=== PATIENT | female | born 1975 | race Caucasian/White ===

== ENCOUNTER 2021-04-02 09:42 | Outpatient (CLI) | payer SELFPAY ==
--- NOTE | 2021-04-02 09:54 | XRR_ITS ---
PROCEDURE INFORMATION: Exam: XR Chest Exam date and time: 04/02/2021 9:54 AM Age: 46 years old Clinical indication: Covid screening TECHNIQUE: Imaging protocol: XR of the chest. Views: 1 view. COMPARISON: No relevant prior studies available. FINDINGS: Lungs: No focal peripheral lung consolidation, air bronchogram formation, or silhouette sign. Pleural spaces: No pleural effusion or pneumothorax. Heart/Mediastinum: The cardiac silhouette is not enlarged. The mediastinal contours are normal. Bones/joints: No acute osseous abnormality. XR/XR chest 1V portable [id number] IMPRESSION: No sign of pneumonia. CT CHEST would be more sensitive in detecting early/mild changes of COVID-19 pneumonia. Radiation Dose CTDIVOL = (mGy): DLP = (mGy-cm)
== END 2021-04-02 09:43 | disposition home or self-care (01) ==
LOC: RAD 09:51
PROVIDERS: Visit Provider Family Medicine Adult Medicine
DX: Z20.822 Contact with and (suspected) exposure to COVID-19 (principal); J44.1 Chronic obstructive pulmonary disease with (acute) exacerbation; U07.1 COVID-19
CPT/HCPCS: 71045; 87635

== ENCOUNTER 2021-04-23 15:23 | Emergency (ER) | payer SELFPAY ==
[2021-04-23 15:47] VITALS: BP 202/94; PULSE 104; RESP 16; TEMP 36.6; O2SAT 99; BMI 27.3
--- NOTE | 2021-04-23 15:51 | ECG_ITS ---
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 Measurements Intervals [place] Rate: 100 P: 79 DC: 155 QRS: 54 QRSD: 86 T: 54 QT: 321 QTc: 414 Interpretive Statements SINUS TACHYCARDIA POSSIBLE LEFT ATRIAL ENLARGEMENT [-0.1mV P-WAVE IN V1/V2] No previous ECG available for comparison Electronically Signed On 04-23-2021 17:51:21 PATIENT CASE COORDINATOR by Irina Botello M.D. [id number]
--- NOTE | 2021-04-23 15:53 | XR_ITS ---
WS: [id number] Exam: XR chest 1V portable [id number] Date/Time of Exam: 04/23/2021 3:56 PM Reason For Exam: chest pain Comparison 04/02/2021. Findings: The lungs are clear and fully expanded. Costophrenic angles are sharp. No infiltrates. Bronchovascula r relief appears normal. Cardiac silhouette is unremarkable. Bony elements are intact. XR/XR chest 1V portable [id number] IMPRESSION: Unremarkable chest radiograph.
[2021-04-23 16:03] LABS: Basophils % 0.4 %; Eosinophils # 0.1 10^3/uL (0.0-0.8); Eosinophils % 0.6 %; Hematocrit 43.6 % (37.0-47.0); Hemoglobin 15.3 g/dL (11.5-15.3); Lymphocytes # 1.8 10^3/uL (0.8-4.8); Mean Corpuscular HGB Conc 35.1 g/dL (30.0-36.0); Mean Corpuscular Hemoglobin 33.1 pg (28.0-34.0); Mean Corpuscular Volume 94.4 fl (81-99); Mean Platelet Volume 8.4 fL (7.4-10.4); Monocytes # 0.6 10^3/uL (0.2-0.9); Monocytes % 7.2 %; Neutrophils # 5.96 10^3/uL (1.8-7.7); Neutrophils % 70.6 %; Nucleated Red Blood Cells % 0 %; Platelet Count 243 10^3/cmm (130-400); Red Blood Count 4.62 10^6/uL (4.1-5.3); Red Cell Distribution Width 12.2 % (12.1-15.1); White Blood Count 8.4 10^3/uL (4.0-10.0)
[2021-04-23 16:26] LABS: Troponin(5th) Baseline 6 ng/L (0-10)
[2021-04-23 16:36] LABS: Alanine Aminotransferase 20 U/L (0-33); Albumin Level 4.7 g/dL (3.5-5.2); Alkaline Phosphatase 81 IU/L (35-105); Anion Gap 21.3 (5-19); Aspartate Amino Transferase 13 U/L (0-32); Blood Urea Nitrogen 6 mg/dL (6-20); Calcium 9.1 mg/dL (8.5-10.5); Carbon Dioxide 22 mmol/L (22-29); Chloride 102 mmol/L (98-107); Globulin 2.4 g/dL (1.3-4.6); Glomerular Filtration Rate 131.7 mL/min (90-130); Glucose 77 mg/dL (65-115); Osmolality Calculated 288 mOsm/kg (285-295); Potassium 4.3 mmol/L (3.5-5.1); Sodium 141 mmol/L (136-145); Total Bilirubin 0.4 mg/dL (0.15-1.2); Total Protein 7.1 g/dL (6.6-8.7)
[2021-04-23 17:49] LABS: Troponin 5 2HR Delta 0 ABS# (0-10)
--- NOTE | 2021-04-23 17:51 | ECG_ITS ---
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 Measurements Intervals [place] Rate: 99 P: 63 CA: 167 QRS: 64 QRSD: 82 T: 47 QT: 330 QTc: 424 Interpretive Statements SINUS RHYTHM Compared to ECG 04/23/2021 15:44:55 Sinus tachycardia no longer present Electronically Signed On 04-23-2021 17:55:53 HEAVY DUTY TRUCK MECHANIC by Irina Botello M.D. [id number] f
--- NOTE | 2021-04-23 18:50 | W.ED.ARRPALP ---
HPI - Arrhythmia/Palpitations General: Chief Complaint: Arrhythmia/Palpitations Stated Complaint: HIGH HEART RATE/HIGH BP Time Seen by Provider: 04/23/21 18:40 Source: patient Mode of arrival: ambulatory Limitations: no limitations History of Present Illness: HPI narrative: 46-year-old female has a history of COPD is actually diagnosed with Covid at the end of March on a course of steroids states that when she finished the steroids on the and she is out of quarantine she has been having some palpitations along with slight headaches. States that her blood pressures been running quite high as well her blood pressure here is 171/125 she denies any chest pain to me denies any shortness of breath states that her palpitations are typically worse with ambulation. Denies any vomiting or diarrhea. Associated symptoms: Deny nausea or vomiting Review of Systems Const: Denies: fever(s), chills, body aches or change in appetite Eyes: Denies: blurry vision or eye discomfort ENMT: Denies: throat pain or dental pain Card: Reports: palpitations Resp: Denies: dyspnea GI: Denies: abdominal pain, nausea, vomiting or diarrhea : Denies: dysuria Musc: Denies: neck pain or back pain Skin/Breast: Denies: rash Neuro: Reports: headache(s) Psych: Denies: depression Jeremías/Lymph: Denies: easy bruising All/Imm: Denies: urticaria PFSH ED PFSH: Medical History COPD exacerbation COVID-19 Covid positive test on 04/02/2021. Ongoing symptomatic disease due to COVID-19 virus Social History Smoking and tobacco status: current every day smoker Alcohol intake: unknown Physical Exam Const: COMMON NORMALS: no acute distress, patient oriented x3 and healthy appearing HENMT: COMMON NORMALS: normocephalic and atraumatic HEAD & SCALP: normocephalic and atraumatic Eye: COMMON NORMALS: Equal, round and reactive pupils present and EOMs intact bilaterally PUPIL: Yes Equal, round and reactive pupils present Neck/C-Spine: COMMON NORMALS: full ROM and supple Chest: COMMONS NORMALS: normal inspection of the chest and normal palpation of entire chest wall Resp: COMMON NORMALS: normal respiratory effort, No retractions, No use of accessory muscles and clear to auscultation bilaterally AUSCULTATION: clear to auscultation bilaterally Cardio: COMMON NORMALS: regular rate, regular rhythm and No murmurs present (Cardio) RATE: regular rate RHYTHM: regular rhythm GI: COMMON NORMALS: Normal to inspection, nondistended, normoactive bowel sounds present, Soft to palpation, non-tender and no masses PALPATION: Yes Soft to palpation Extremity: COMMON NORMALS: normal to inspection and full ROM Neuro: COMMON NORMALS: patient oriented x3, moves all extremities and no focal motor deficits Psych: COMMON NORMALS: mental status grossly normal, Normal thought process present and cooperative THOUGHT PROCESS: Normal thought process present Skin: COMMON NORMALS: no rashes or lesions noted and no wounds GENERAL SKIN EXAM: no rashes or lesions noted Course Vital Signs: Vital signs: Vital Signs Temperature 97.8 F 04/23/21 15:47 Pulse Rate 104 H 04/23/21 15:47 Respiratory Rate 16 04/23/21 15:47 Blood Pressure 202/94 04/23/21 15:47 Pulse Oximetry 99 04/23/21 15:47 MDM - Arrhythmia/Palpitations MDM Narrative: Medical decision making narrative: Patient presents here with hypertension along with palpitations and headache patient's hypertension has been untreated is likely chronic in nature we will start her on metoprolol she is to follow-up with primary care physician which I will set up for her she is to monitor her blood pressure her head CT and blood work here is all normal she is stable for discharge return if worsening. Lab Data: Labs: Lab Results 04/23/21 04/23/21 04/23/21 15:58 15:58 15:58 WBC 8.4 10^3/uL 10^3/ uL (4.0-10.0) RBC 4.62 10^6/uL 10^6 /uL (4.1-5.3) Hgb 15.3 g/dL g/dL (11.5-15.3) Hct 43.6 % % (37.0-47.0) MCV 94.4 fl fl (81-99) MCH 33.1 pg pg (28.0-34.0) MCHC 35.1 g/dL g/dL (30.0-36.0) RDW 12.2 % % (12.1-15.1) Plt Count 243 10^3/cmm 10^3 /cmm (130-400) MPV 8.4 fL fL (7.4-10.4) Neut % (Auto) 70.6 % % Lymph % (Auto) 21.0 % % [place] % (Auto) 7.2 % % Eos % (Auto) 0.6 % % Baso % (Auto) 0.4 % % Neut # (Auto) 5.96 10^3/uL 10^3 /uL (1.8-7.7) Lymph # (Auto) 1.8 10^3/uL 10^3/ uL (0.8-4.8) [place] # (Auto) 0.6 10^3/uL 10^3/ uL (0.2-0.9) Eos # (Auto) 0.1 10^3/uL 10^3/ uL (0.0-0.8) Baso # (Auto) 0.0 10^3/uL 10^3/ uL (0.0-0.1) Nucleated RBC % (a uto) 0 % % Nucleated RBCs # 0.0 /100WBC /100W BC D-Dimer Sodium 141 mmol/L mmol/L (136-145) Potassium 4.3 mmol/L mmol/L (3.5-5.1) Chloride 102 mmol/L mmol/L (98-107) Carbon Dioxide 22 mmol/L mmol/L (22-29) Anion Gap 21.3 H (5-19) BUN 6 mg/dL mg/dL (6-20) Creatinine 0.5 mg/dL mg/dL (0.5-0.9) GFR Calculation 131.7 mL/min H mL /min (90-130) Glucose 77 mg/dL mg/dL (65-115) Calculated Osmolal ity 288 mOsm/kg mOsm/ kg (285-295) Calcium 9.1 mg/dL mg/dL (8.5-10.5) Total Bilirubin 0.4 mg/dL mg/dL (0.15-1.2) AST 13 U/L U/L (0-32) ALT 20 U/L U/L (0-33) Alkaline Phosphata se 81 IU/L IU/L (35-105) Troponin T Baselin e 6 ng/L ng/L (0-10) Troponin T 120 Min [place] Delta Troponin T Total Protein 7.1 g/dL g/dL (6.6-8.7) Albumin 4.7 g/dL g/dL (3.5-5.2) Globulin 2.4 g/dL g/dL (1.3-4.6) 04/23/21 04/23/21 17:26 19:10 WBC RBC Hgb Hct MCV MCH MCHC RDW Plt Count MPV Neut % (Auto) Lymph % (Auto) [place] % (Auto) Eos % (Auto) Baso % (Auto) Neut # (Auto) Lymph # (Auto) [place] # (Auto) Eos # (Auto) Baso # (Auto) Nucleated RBC % (a uto) Nucleated RBCs # D-Dimer <= 0.27 ug/mIFEU ug/mIFEU (0-0.59) Sodium Potassium Chloride Carbon Dioxide Anion Gap BUN Creatinine GFR Calculation Glucose Calculated Osmolal ity Calcium Total Bilirubin AST ALT Alkaline Phosphata se Troponin T Baselin e Troponin T 120 Min [place] 6.00 ng/L ng/L (0-10) Delta Troponin T 0 ABS# ABS# (0-10) Total Protein Albumin Globulin Imaging Data^: CXR: Attestation: I personally reviewed and interpreted this imaging study as follows: Radiologist's impression: [address] [address] XRay Report Signed Patient: Tawanna Lewis Unit #: [id number] : 1975 Age/Sex: 46 / F ADM Date: 04/23/21 Loc: ER Room/Bed: Attending Dr: Ordering Provider/Ordering MD: Autumn Chin Date of Service: 04/23/21 Procedure(s): XR chest 1V portable [id number] Accession Number(s): [id number] Report Number: [id number] WS: [id number] Exam: XR chest 1V portable [id number] Date/Time of Exam: 04/23/2021 3:56 PM Reason For Exam: chest pain Comparison 04/02/2021. Findings: The lungs are clear and fully expanded. Costophrenic angles are sharp. No infiltrates. Bronchovascular relief appears normal. Cardiac silhouette is unremarkable. Bony elements are intact. XR/XR chest 1V portable [id number] IMPRESSION: Unremarkable chest radiograph. Dictated By: Lionel Wellington DO Signed By: Lionel Wellington DO Signed Date/Time: 04/23/21 160 DD/ 03 CT Head: Attestation: I personally reviewed and interpreted this imaging study as follows: Radiologist's impression: [address] [address] [address] Scan Report Signed Patient: Tawanna Lewis Unit #: [id number] : 1975 Age/Sex: 46 / F ADM Date: 04/23/21 Loc: ER Room/Bed: Attending Dr: Ordering Provider/Ordering MD: Deric Duarte MD Date of Service: 04/23/21 Procedure(s): CT head wo con* [id number] Accession Number(s): [id number] Report Number: [id number] PROCEDURE INFORMATION: Exam: CT Head Without Contrast Exam date and time: 04/23/2021 8:04 PM Age: 46 years old Clinical indication: Pain; Other: High BP; Headache; Additional info: JACQUES TECHNIQUE: Imaging protocol: Computed tomography of the head without contrast. Radiation optimization: All CT scans at this facility use at least one of these dose optimization techniques: automated exposure control; mA and/or kV adjustment per patient size (includes targeted exams where dose is matched to clinical indication); or iterative reconstruction. COMPARISON: No relevant prior studies available. RADIATION DOSE METRICS: Total DLP (mGy-cm): 686.64 FINDINGS: Brain: Normal. No hemorrhage. Unremarkable white matter. No mass effect. Cerebral ventricles: No ventriculomegaly. Paranasal sinuses: Visualized sinuses are unremarkable. No fluid levels. Mastoid air cells: Visualized mastoid air cells are well aerated. Bones/joints: Unremarkable. No acute fracture. Soft tissues: Unremarkable. CT/CT head wo con* [id number] IMPRESSION: No acute intracranial abnormality. Dictated By: Ramon Marie MD Signed By: Ramon Marie MD Signed Date/Time: 04/23/212103 DD/ 03 EKG Data^: EKG 1: Attestation: I personally reviewed and interpreted this EKG as follows: EKG interpretation date: 04/23/21 EKG interpretation time: 15:44 Interpretation: sinus tach hr [address] or t wave abnormalities qrs 86 qtc 378 Other EKG comments: Chest X-Ray 04/23/21 15:53 IMPRESSION: Unremarkable chest radiograph. Head CT 04/23/21 20:04 IMPRESSION: No acute intracranial abnormality. Discharge Plan Discharge Patient Disposition: Home Clinical Impression: Hypertension Qualifiers: Hypertension type: unspecified Qualified Code(s): I10 - Essential (primary) hypertension Headache Qualifiers: Headache type: unspecified Headache chronicity pattern: unspecified pattern Intractability: not intractable Qualified Code(s): R51.9 - Headache, unspecified Condition: Stable Prescriptions: New metoprolol succinate 50 mg tablet extended release 24 hr 50 mg PO DAILY Qty: 30 RF: 0 No Action ascorbic [id number]-[id number]-rth [Emergen-C] PO PRNRF: 0 Theraflu ExpressMax Cold Day 5-10-325 mg/15 mL liquid PO RF: 0 cholecalciferol (vitamin D3) PO DAILY RF: 0 zinc acetate PO DAILY RF: 0 muvicdnewv-JL-TI-acetaminophen [Vicks DayQuil-NyQuil Cold-Flu] PO PRNRF: 0 albuterol sulfate 90 mcg/actuation HFA aerosol inhaler 2 puff inhalation Q6H PRN (Reason: shortness of breath or wheezing) Qty: 8.5 RF: 5 Xarelto 10 mg tablet 10 mg PO DAILY Qty: 30 RF: 2 Discharge Orders: Discharge ED (Routine); Ordered 04/23/21 Ordered By: Deric Duarte Discharge Diet: Advance as tolerated Discharge Activity: Resume usual activity Patient Instructions: Hypertension (ED), General Headache (ED) Coding Level of Care Code ED Abalone Diver for Chg Fwd Exam Comprehensive
[2021-04-23] MEDS: labetalol 5 mg/mL SDV 20mL 10 MG IVP (19:09)
[2021-04-23 19:37] LABS: D Dimer <= 0.27 ug/mIFEU (0-0.59)
--- NOTE | 2021-04-23 20:04 | CTR_ITS ---
PROCEDURE INFORMATION: Exam: CT Head Without Contrast Exam date and time: 04/23/2021 8:04 PM Age: 46 years old Clinical indication: Pain; Other: High BP; Headache; Additional info: JACQUES TECHNIQUE: Imaging protocol: Computed tomography of the head without contrast. Radiation optimization: All CT scans at this facility use at least one of these dose optimization techniques: automated exposure control; mA and/or kV adjustment per patient size (includes targeted exams where dose is matched to clinical indication); or iterative reconstruction. COMPARISON: No relevant prior studies available. RADIATION DOSE METRICS: Total DLP (mGy-cm): 686.64 FINDINGS: Brain: Normal. No hemorrhage. Unremarkable white matter. No mass effect. Cerebral ventricles: No ventriculomegaly. Paranasal sinuses: Visualized sinuses are unremarkable. No fluid levels. Mastoid air cells: Visualized mastoid air cells are well aerated. Bones/joints: Unremarkable. No acute fracture. Soft tissues: Unremarkable. CT/CT head wo con* [id number] IMPRESSION: No acute intracranial abnormality.
[2021-04-23] MEDS: labetalol 5 mg/mL SDV 20mL 20 MG IVP (20:08)
[2021-04-23] MEDS: ketorolac 30 mg/mL INJ 15 MG IVP (20:10)
[2021-04-23 21:47] VITALS: BP 143/98; PULSE 89; RESP 18; TEMP 36.7; O2SAT 98
--- NOTE | 2021-04-24 09:07 | PC.SOCIAL ---
referral received by Dr Duarte to establish patient with PCP. Patient called and discussed options she is okay with seeing Carissa RODARTE. Appt scheduled for 04/29/2021 at 1pm. Called and updated patient. She wrote down information and repeated back information to confirm. This nurse will send out financial assistance paperwork per patient request since she has no medical coverage at this time.
--- NOTE | 2021-05-02 15:41 | DCPLANNER ---
Patient had a follow up appointment scheduled with Sienna Mahmood - patient did attend appointment.
== END 2021-04-23 21:57 | disposition home or self-care (01) ==
PROVIDERS: Family Medicine; Emergency Provider Emergency Medicine
DX: I10 Essential (primary) hypertension (principal); R51.9 Headache, unspecified; J44.9 Chronic obstructive pulmonary disease, unspecified; F17.200 Nicotine dependence, unspecified, uncomplicated; Z86.16 Personal history of COVID-19
CPT/HCPCS: 36415; 70450; 71045; 80053; 84484; 85025; 85378; 93005; 96374; 96375; 96376; 99284; J1885; J3490

== ENCOUNTER 2021-05-13 13:16 | Outpatient (CLI) | payer SELFPAY ==
--- NOTE | 2021-05-13 13:30 | MM_ITS ---
WS: [id number] BILATERAL DIGITAL DIAGNOSTIC MAMMOGRAM MAMMOGRAPHY WITH CAD CLINICAL INFORMATION: Lymphadenopathy, tender breast mass L COMPARISON: 2017 TECHNIQUE: Bilateral CC, MLO, and ML views. FINDINGS: Scattered fibroglandular densities bilaterally. No suspicious focal mass, asymmetry, calcifications, or architectural distortion. No evidence of lauro gnancy. MM/[place] [id number] IMPRESSION: BI-RADS: 2-Benign FOLLOW UP: 1 Year Follow-up Recommend return to annual screening mammography.
== END 2021-05-13 13:17 | disposition home or self-care (01) ==
LOC: RADSHAW 13:19
PROVIDERS: PCP Nurse Practitioner Family; Visit Provider Nurse Practitioner Family
DX: N63.20 Unspecified lump in the left breast, unspecified quadrant (principal); R59.0 Localized enlarged lymph nodes
CPT/HCPCS: 77066

== ENCOUNTER → 2022-02-18 11:52 | Outpatient (BNVA) | payer SELFPAY | PROVIDERS: PCP Family Medicine; Visit Provider Family Medicine | DX: I10 Essential (primary) hypertension (principal); Z72.0 Tobacco use; Z71.6 Tobacco abuse counseling; J30.2 Other seasonal allergic rhinitis; J45.909 Unspecified asthma, uncomplicated | CPT/HCPCS: 80053; 80061; 84439; 84443; 85025 ==

== ENCOUNTER 2023-03-17 21:49 | Emergency (ER) | payer SELFPAY ==
[2023-03-17 21:53] VITALS: BP 179/94; PULSE 111; RESP 20; TEMP 36.9; O2SAT 98; BMI 26.1
--- NOTE | 2023-03-17 21:59 | W.ED.ANXIETY ---
HPI - Anxiety General: Chief Complaint: Anxiety Stated Complaint: Gummies and Benadryl to much Time Seen by Provider: 03/17/23 21:58 History of Present Illness: 48-year-old female comes in today for concerns of chest discomfort and pressure. Patient endorses taking 1-1/2 tablets of her THC Gummies and then taking some Benadryl sinus medication together. Patient believes that this may have caused a adverse reaction. However, patient does have blood pressure problems and is worried that it may be her heart. Patient appears anxious. Patient appears in no severe pain. Patient has a history of asthma, hypertension, allergic rhinitis. Associated symptoms: Reports chest pain; Deny chills, fever(s), nausea or vomiting Review of Systems General: Reports: 10 or more systems reviewed and unremarkable except in HPI and below Const: Denies: fever(s) or chills Eyes: Denies: change in vision ENMT: Denies: throat pain Card: Reports: chest pain Resp: Reports: pain on inspiration GI: Denies: abdominal pain, nausea or vomiting : Denies: difficulty voiding Musc: Denies: neck pain or back pain Skin/Breast: Denies: rash Neuro: Denies: numbness in extremities Psych: Reports: anxiety PFSH ED PFSH: Medical History COVID-19 Covid positive test on 04/02/2021. Hypertension Ongoing symptomatic disease due to COVID-19 virus Seasonal allergies Tobacco abuse Surgical History H/O tubal ligation Hx of tonsillectomy Family History Denies family history of Diabetes CAD (coronary artery disease) Clotting disorder Dementia Chronic kidney disease (CKD) Anesthesia complication Bleeding disorder Cancer Hypertension Stroke Social History (Updated 01/13/23 @ 10:36 by Nadira Nieves LPN) Smoking and tobacco/nicotine status: former use of tobacco/nicotine (5 cigarettes ) Quit status (tobacco/nicotine): has quit using Former quit date comment: 05/2022 Alcohol intake: current Alcohol intake frequency: holidays/special occasions only Substance/Drug Use: current Substance/Drug use frequency: few times a week Adopted: No Caregiver/support person: No Lives independently: Yes Marital status: Legally Number of children: 4 Current occupational status: employed 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 Do you think of yourself as: Straight/Heterosexual Current gender identity: Female Female Reproductive History: Date of menopause: 02/01/22 Physical Exam Const: COMMON NORMALS: alert HENMT: COMMON NORMALS: normocephalic HEAD & SCALP: normocephalic MOUTH: Normal oral and palatal mucosa present Neck/C-Spine: COMMON NORMALS: full ROM Resp: COMMON NORMALS: normal respiratory effort and clear to auscultation bilaterally AUSCULTATION: clear to auscultation bilaterally Cardio: COMMON NORMALS: regular rate and regular rhythm RATE: regular rate RHYTHM: regular rhythm GI: COMMON NORMALS: Soft to palpation and non-tender PALPATION: Yes Soft to palpation Extremity: COMMON NORMALS: no pedal edema Neuro: SENSORIUM/ORIENTATION: Yes alert Skin: COMMON NORMALS: turgor normal GENERAL SKIN EXAM: turgor normal Course Vital Signs: Vital signs: Vital Signs Temperature 98.4 F 03/17/23 21:53 Pulse Rate 111 H 03/17/23 21:53 Respiratory Rate 20 H 03/17/23 21:53 Blood Pressure 179/94 03/17/23 21:53 Pulse Oximetry 98 03/17/23 21:53 MDM - Anxiety Medical Decision Making 48-year-old female comes in today with complaints of of anxiety and chest discomfort. On exam lungs are clear to auscultation. Heart rates regular without any abnormal tones. Pulses are intact. No edema is noted. Abdomen soft nontender. Vital signs note some mild elevation in heart rate at 110, blood pressure 179 systolic, normal temperature and O2 saturation. Differential diagnosis includes not limited to adverse drug effect, ACS, PE, anxiety, electrolyte abnormality. EKG was normal sinus rhythm. Troponin was normal. D-dimer was normal. CBC and CMP were unremarkable. EtOH was negative. Believe the patient had a reaction to the THC causing anxiety. Patient improved in the ER and was symptom-free at discharge. Patient had been given 0.1 mg of clonidine in the emergency department for some elevated blood pressure and the anxiety. Recommended patient recheck her blood pressure in the morning before her usual dosing to ensure that her blood pressure is not low. Patient reported understanding of care plan and need for follow-up or return to the ER for worsening symptoms or new concerns. Lab Data 03/17/23 22:18 03/17/23 22:18 Laboratory Results WBC 7.60 10^3/uL (3.29-11.43) 03/17/23 22:18 RBC 4.14 10^6/uL (3.85-5.65) 03/17/23 22:18 Hgb 13.00 g/dL (11.27-16.99) 03/17/23 22:18 Hct 39.6 % (36-47) 03/17/23 22:18 MCV 95.7 fl (85-98) 03/17/23 22:18 MCH 31.4 pg (27-33) 03/17/23 22:18 MCHC 32.8 g/dL (30-55) 03/17/23 22:18 RDW 12.9 % (12.1-15.1) 03/17/23 22:18 Plt Count 281 10^3/cmm (157-399) 03/17/23 22:18 MPV 8.5 fL (7.4-10.4) 03/17/23 22:18 Neut % (Auto) 71.7 % 03/17/23 22:18 Lymph % (Auto) 18.6 % 03/17/23 22:18 [place] % (Auto) 8.0 % 03/17/23 22:18 Eos % (Auto) 1.1 % 03/17/23 22:18 Baso % (Auto) 0.5 % 03/17/23 22:18 Neut # (Auto) 5.45 10^3/uL (1.8-7.7) 03/17/23 22:18 Lymph # (Auto) 1.4 10^3/uL (0.8-4.8) 03/17/23 22:18 [place] # (Auto) 0.6 10^3/uL (0.2-0.9) 03/17/23 22:18 Eos # (Auto) 0.1 10^3/uL (0.0-0.8) 03/17/23 22:18 Baso # (Auto) 0.0 10^3/uL (0.0-0.1) 03/17/23 22:18 Nucleated RBC % (auto) 0 % 03/17/23 22:18 Nucleated RBCs # 0.0 /100WBC 03/17/23 22:18 D-Dimer 0.51 ug/mLFEU (0-0.59) 03/17/23 22:18 Sodium 137 mmol/L (136-145) 03/17/23 22:18 Potassium 4.5 mmol/L (3.5-5.1) 03/17/23 22:18 Chloride 102 mmol/L (98-107) 03/17/23 22:18 Carbon Dioxide 22 mmol/L (22-29) 03/17/23 22:18 Anion Gap 17.5 (5-19) 03/17/23 22:18 BUN 10 mg/dL (6-20) 03/17/23 22:18 Creatinine 0.7 mg/dL (0.5-0.9) 03/17/23 22:18 GFR Calculation 88.6 mL/min (90-130) L 03/17/23 22:18 Glucose 202 mg/dL (65-115) H 03/17/23 22:18 Calculated Osmolality 289 mOsm/kg (285-295) 03/17/23 22:18 Calcium 9.5 mg/dL (8.5-10.5) 03/17/23 22:18 Total Bilirubin 0.2 mg/dL (0.15-1.2) 03/17/23 22:18 AST 19 U/L (0-32) 03/17/23 22:18 ALT 15 U/L (0-33) 03/17/23 22:18 Alkaline Phosphatase 97 U/L (35-105) 03/17/23 22:18 Troponin T Baseline < 6 ng/L (0-10) 03/17/23 22:18 Total Protein 6.7 g/dL (6.6-8.7) 03/17/23 22:18 Albumin 4.4 g/dL (3.5-5.2) 03/17/23 22:18 Globulin 2.3 g/dL (1.3-4.6) 03/17/23 22:18 TSH 1.03 uIU/mL (0.27-4.20) 03/17/23 22:18 Salicylates < 0.3 mg/dL (3-10) L 03/17/23 22:18 Acetaminophen < 5.0 ug/mL (10-30) L 03/17/23 22:18 Ethyl Alcohol < 10 mg/dL (0-10) 03/17/23 22:18 All radiology interpretation(s) finalized by discharge EKG Data EKG 1: EKG interpretation date: 03/17/23 EKG interpretation time: 22:50 Prior EKG tracings: not available for review Interpretation: EKG shows sinus rhythm with a regular rate at [address] elevation or ectopy is noted. No prior exam was available for immediate comparison. Computer generated interpretation: Sinus rhythm, normal EKG, unconfirmed report. Discharge Plan Discharge Patient Disposition: Home Clinical Impression: Cannabinosis Adverse drug effect Qualifiers: Encounter type: initial encounter Qualified Code(s): T50.905A - Adverse effect of unspecified drugs, medicaments and biological substances, initial encounter Hypertension Qualifiers: Hypertension type: unspecified Qualified Code(s): I10 - Essential (primary) hypertension Condition: Stable Prescriptions: No Action aspirin [[place] Aspirin] 81 mg tablet,delayed release (DR/EC) 81 mg PO DAILY multivitamin Tablet 1 tab PO DAILY black cohosh 200 mg capsule 200 mg PO DAILY THC gummies 5 mg PO PRN Saccharomyces boulardii [Daily Probiotic (S. boulardii)] 250 mg capsule 250 mg PO DAILY amlodipine 10 mg tablet 10 mg PO DAILY Qty: 90 1RF albuterol sulfate 90 mcg/actuation HFA aerosol inhaler 2 puff inhalation Q6H PRN (Reason: shortness of breath or wheezing) Qty: 8.5 5RF losartan 100 mg tablet 100 mg PO DAILY Qty: 90 3RF fluticasone propionate [Flonase Allergy Relief] 50 mcg/actuation spray,suspension 1 spray intranasal DAILY Qty: 16 2RF Rx Instructions: administer into each nostril Zyrtec 10 mg capsule 10 mg PO DAILY PRN (Reason: allergies) Qty: 90 1RF Discharge Orders: Discharge ED (Routine); Ordered 03/17/23 Ordered By: Umesh Martinez Referrals: Lorenzo Carrillo MD [Primary Care Provider] - Discharge Diet: Usual diet Discharge Activity: Increase activity as tolerated Patient Instructions: Adverse Drug Reaction (ED) Activity Restrictions/Additional Instructions: Home and rest. Drink plenty water and fluids. Recheck blood pressure in the morning prior to taking your normal dosing of medications. Hold medication if it is low. Follow-up with primary care as needed. Return to ED for new concerns. Coding Level of Care Code ED Senior Ui Developer for Slava Magaña
--- NOTE | 2023-03-17 22:06 | ECG_ITS ---
[facility] Test Date: 2023-03-17 Pat Name: Tawanna Lewis Department: Room: Gender: Female [employer]: : 1975 Requested By: Umesh Birmingham Order Number: [id number] Vanessa MD: Ty Olivas M.D. Measurements Intervals [place] Rate: 95 P: 36 NE: 160 QRS: 57 QRSD: 83 T: 42 QT: 337 QTc: 424 Interpretive Statements SINUS RHYTHM Compared to ECG 04/23/2021 17:29:15 No significant changes Electronically Signed On 03-20-2023 14:08:16 ASSISTANT FINANCIAL ACCOUNTANT by Ty Olivas M.D. [id number]
--- NOTE | 2023-03-17 22:06 | XRR_ITS ---
PROCEDURE INFORMATION: Exam: XR Chest Exam date and time: 03/17/2023 10:09 PM Age: 48 years old Clinical indication: Pain; Chest pressure TECHNIQUE: Imaging protocol: Radiologic exam of the chest. Views: 1 view. COMPARISON: CR XR chest 1V portable 04/23/2021 4:00 PM FINDINGS: Lungs: Unremarkable. No consolidation. Pleural spaces: Unremarkable. No pleural effusion. No pneumothorax. Heart/Mediastinum: Unremarkable. No cardiomegaly. Bones/joints: Unremarkable. XR/XR chest 1V portable [id number] IMPRESSION: No acute findings.
[2023-03-17] MEDS: cloNIDine 0.1 mg Tablet PO (22:20)
[2023-03-17 22:26] LABS: Basophils % 0.5 %; Eosinophils # 0.1 10^3/uL (0.0-0.8); Eosinophils % 1.1 %; Hematocrit 39.6 % (36-47); Lymphocytes # 1.4 10^3/uL (0.8-4.8); Lymphocytes % 18.6 %; Mean Corpuscular HGB Conc 32.8 g/dL (30-55); Mean Corpuscular Hemoglobin 31.4 pg (27-33); Mean Corpuscular Volume 95.7 fl (85-98); Mean Platelet Volume 8.5 fL (7.4-10.4); Monocytes # 0.6 10^3/uL (0.2-0.9); Neutrophils # 5.45 10^3/uL (1.8-7.7); Neutrophils % 71.7 %; Nucleated Red Blood Cells % 0 %; Platelet Count 281 10^3/cmm (157-399); Red Blood Count 4.14 10^6/uL (3.85-5.65); Red Cell Distribution Width 12.9 % (12.1-15.1)
[2023-03-17 22:41] LABS: D Dimer 0.51 ug/mLFEU (0-0.59)
[2023-03-17 22:47] LABS: Troponin(5th) Baseline < 6 ng/L (0-10)
[2023-03-17 22:55] LABS: Acetaminophen < 5.0 ug/mL (10-30); Alanine Aminotransferase 15 U/L (0-33); Albumin Level 4.4 g/dL (3.5-5.2); Alcohol Level < 10 mg/dL (0-10); Alkaline Phosphatase 97 U/L (35-105); Aspartate Amino Transferase 19 U/L (0-32); Blood Urea Nitrogen 10 mg/dL (6-20); Calcium 9.5 mg/dL (8.5-10.5); Carbon Dioxide 22 mmol/L (22-29); Chloride 102 mmol/L (98-107); Creatinine Clr Calc Pharmacy 91.6761; Globulin 2.3 g/dL (1.3-4.6); Glomerular Filtration Rate 88.6 mL/min (90-130); Glucose 202 mg/dL (65-115); Osmolality Calculated 289 mOsm/kg (285-295); Salicylate < 0.3 mg/dL (3-10); Sodium 137 mmol/L (136-145); Thyroid Stimulating Hormone 1.03 uIU/mL (0.27-4.20); Total Bilirubin 0.2 mg/dL (0.15-1.2); Total Protein 6.7 g/dL (6.6-8.7)
[2023-03-17 22:56] LABS: Anion Gap 17.5 (5-19); Potassium 4.5 mmol/L (3.5-5.1)
== END 2023-03-17 23:18 | disposition home or self-care (01) ==
PROVIDERS: Emergency Provider Nurse Practitioner Family; PCP Family Medicine
DX: J66.2 Cannabinosis (principal); I10 Essential (primary) hypertension; T88.7XXA Unspecified adverse effect of drug or medicament, initial encounter; T40.715A Adverse effect of cannabis, initial encounter; Z79.82 Long term (current) use of aspirin; Z87.891 Personal history of nicotine dependence
CPT/HCPCS: 36415; 71045; 80053; 80307; 84443; 84484; 85025; 85378; 93005; 99285

== ENCOUNTER 2024-03-22 13:26 | Outpatient (CLI) | payer SELFPAY ==
--- NOTE | 2024-03-22 13:30 | MM_ITS ---
WS: [id number] BILATERAL 3D TOMOSYNTHESIS DIGITAL SCREENING MAMMOGRAPHY WITH CAD CLINICAL INFORMATION: screening HISTORY: Screening mammogram. No current complaints. COMPARISON: 2021 TECHNIQUE: Bilateral CC and MLO views. FINDINGS: Scattered fibroglandular densities bilaterally. No suspicious focal mass, asymmetry, calcifications, or architectural distortion. No evidence of malignancy. Lucent centered calcification LEFT breast. MM/MM scr BI tomosynthesis [id number] IMPRESSION: DENSITY: There are scattered areas of fibroglandular density. BI-RADS: 2 - Benign. FOLLOW UP: 1 Year Follow-up Recommend return to annual screening mammography.
== END 2024-03-22 13:27 | disposition home or self-care (01) ==
LOC: RAD 13:27
PROVIDERS: PCP Family Medicine; Visit Provider Family Medicine
DX: Z12.31 Encounter for screening mammogram for malignant neoplasm of breast (principal); R92.323 Mammographic fibroglandular density, bilateral breasts; R92.1 Mammographic calcification found on diagnostic imaging of breast
CPT/HCPCS: 77063; 77067